=== PATIENT | male | born 1960 | race Caucasian/White ===

== ENCOUNTER 2020-03-29 09:55 | Outpatient (CLI) | payer MEDICAID ==
[~2020-03-29 09:55] MED LIST: MIRALAX17 G2 ORAL
[2020-03-29 12:08] VITALS: BP 143/80
--- NOTE | 2020-04-02 12:30 | Consultation ---
DATE OF CONSULTATION: 03/28/2020 GASTROENTEROLOGY CONSULTATION CONSULTING PHYSICIAN: David Aburto MD. CHIEF COMPLAINT: Weight loss. PAST MEDICAL HISTORY: 1. Diabetes. 2. Depression. PAST SURGICAL HISTORY: Hip surgery. MEDICATIONS: Please see medication reconciliation list. FAMILY HISTORY: No family history of GI malignancies. SOCIAL HISTORY: The patient denies any tobacco, alcohol, or drug abuse. REVIEW OF SYSTEMS: A 10-point review of systems was performed and positive for 30 pounds of weight loss and also 4 to 5 times of BM per day. PHYSICAL EXAMINATION: VITAL SIGNS: Temperature 98.2, blood pressure 142/80, pulse rate 92, respirations 20. HEENT: Normocephalic, atraumatic. Sclerae anicteric. NECK: Supple. No evidence of obvious lymphadenopathy. CARDIOVASCULAR: Regular rate and rhythm. Plus S1, S2. LUNGS: Clear to auscultation bilaterally. ABDOMEN: Positive bowel sounds. Soft and nontender. No rebound. No guarding. No peritoneal sign. EXTREMITIES: No cyanosis, no clubbing, no edema. ASSESSMENT AND PLAN: This is a 59-year-old male with 30 pounds of weight loss, five times of bowel movement per day, needs endoscopy and colonoscopy. The patient was given instruction for procedure and the risks and benefits of procedure was explained to him in detail. Plan to schedule him as soon as authorization is obtained. David Aburto M.D. DR: JUSTIN JOB#: [id number] CC:
== END 2020-03-29 11:55 | disposition home or self-care (01) ==
LOC: PAN 09:55
DX: R63.4 Abnormal weight loss (principal); E11.9 Type 2 diabetes mellitus without complications; F32.9 Major depressive disorder, single episode, unspecified
CPT/HCPCS: G0463